=== PATIENT | female | born 1970 | race Two or more races ===

== ENCOUNTER → 2016-08-16 | Day surgery (SDC) | payer OTHER ==
[~2016-08-16] MED LIST: ASPIRIN81 MG PO; FERRO-TIME325 MG PO; GLUCOPHAGE500 MG PO; HYDROXYZINE HCL25 M1 PO; LISINOPRIL2.5 MG PO; MOBIC PO; NAPROXEN500 M1 PO; OMEPRAZOLE20 M2 PO; PRAVASTATIN SOD20 MG PO; ZOFRAN ODT4 MG PO
--- NOTE | ~2016-08-16 | EKG ---
PATIENT: VERNELL TAVAREZ UNIT #: [id number] Ventricular Rate: 66 BPM Atrial Rate: 66 BPM P-R Interval: 174 ms QRS Duration: 76 ms Q-T Interval: 424 ms QTC Calculation(Bezet): 444 ms P [employer]: 38 degrees Calculated R [employer]: 40 degrees Calculated T [employer]: 35 degrees Diagnosis Line: Normal sinus rhythm Diagnosis Line: Normal ECG Diagnosis Line: No previous ECGs available Diagnosis Line: Confirmed by NHAN JUAN MD ([id number]) on Diagnosis Line: 08/16/2016 5:28:52 PM INTERPRETING MD: DRAKE TIRADO
--- NOTE | ~2016-08-16 | OR ---
Unit #: [id number] #: [id number] Patient: VERNELL TAVAREZ [id number] [address] [address] [id number] MR#: [id number] NAME: VERNELL TAVAREZ ROOM: Date of Procedure: 08/16/2016 Admission Date: 08/16/2016 Surgeon: Hawk rPo M.D. : 1970 Attending Physician: Hawk Pro M.D. Primary Care Physician: Generic Doctor Not In System OPERATIVE REPORT PROCEDURE PERFORMED Esophagogastroduodenoscopy with biopsy. INDICATIONS FOR PROCEDURE A 46-year-old female with epigastric pain and history of H pylori, status post antibiotics. MEDICATIONS Monitored anesthesia. POSTOPERATIVE FINDINGS 1. Normal esophagus. 2. Mild gastritis, biopsies taken. 3. Normal duodenum and distal duodenum. PLAN 1. Continue PPI therapy. 2. Avoid NSAIDs. 3. Treat for H pylori if positive. DESCRIPTION OF PROCEDURE The patient was explained of the procedure, risks, and benefits along with risks and benefits of anesthesia. She was brought to the endoscopy room. Propofol anesthesia was given. Bite block was placed. The scope was passed down the mouth into the esophagus, stomach, duodenum, and distal duodenum. Findings as described. Biopsies taken. Gently, I pulled it of the patient's mouth. She tolerated it well. Dictated by... Crystal Guzman/usha TD: 08/17/2016 01:49 JOB #: [id number] Unit #: [id number] #: [id number] Patient: VERNELL TAVAREZ OPERATIVE REPORT Page 1 of 1 X Hawk Pro MD X PROCEDURE OPERATIVE NOTE
[2016-08-16 15:39] LABS: BASOPHIL# 0.3 X10e3 (0-0.3); BASOPHIL% 2.4 % (0-2.5); EOSINOPHIL# 0.1 X10e3 (0-0.7); EOSINOPHIL% 0.9 % (0.0-7.0); HEMATOCRIT 37.2 % (35.0-45.0); HEMOGLOBIN 12.3 gm/dL (12.0-16.0); LYMPHOCYTE# 3.5 X10e3 (1.0-3.5); LYMPHOCYTE% 32.9 % (17.0-45.0); MEAN CELL VOLUME 88.9 FL (83-96); MEAN CORPUSCULAR HEMOGLOBIN 29.4 PG (28-34); MEAN CORPUSCULAR HGB CONC 33.1 g/dL (30-36); MEAN PLATELET VOLUME 7.8 FL (6.5-11.5); MONOCYTE# 0.5 X10e3 (0-1.0); MONOCYTE% 5.1 % (3.0-12.0); NEUTROPHIL# 6.3 X10e3 (1.5-7.1); NEUTROPHIL% 58.7 % (40-75); PLATELET COUNT 443 X10e3 (140-420); RED BLOOD COUNT 4.19 X10e (3.90-5.30); RED CELL DISTRIBUTION WIDTH 13.3 % (11.0-15.5); WHITE BLOOD COUNT 10.7 X10e3 (4.0-10.5)
[2016-08-16 15:47] LABS: DIFF IND NO
[2016-08-16 16:04] LABS: ALBUMIN SERUM 4.4 g/dL (3.5-5.0); BUN/CREATININE RATIO 33.33; CALCIUM SERUM 9.2 mg/dL (8.4-10.2); CREATININE SERUM 0.3 mg/dL (0.6-1.4); GLOM FILT RATE Estimated 139.3 mL/min (>60); POTASSIUM 3.4 mmol/L (3.5-5.1); PROTEIN TOTAL SERUM 7.9 g/dL (6.0-8.3)
== END | disposition home or self-care (01) ==
LOC: COPS 08:00
PROVIDERS: Internal Medicine
DX: K29.50 Unspecified chronic gastritis without bleeding (principal); E11.9 Type 2 diabetes mellitus without complications; K21.9 Gastro-esophageal reflux disease without esophagitis; D64.9 Anemia, unspecified; E78.5 Hyperlipidemia, unspecified; Z87.891 Personal history of nicotine dependence; Z86.19 Personal history of other infectious and parasitic diseases; Z79.82 Long term (current) use of aspirin; Z79.84 Long term (current) use of oral hypoglycemic drugs; Z79.1 Long term (current) use of non-steroidal anti-inflammatories (NSAID); Z79.899 Other long term (current) drug therapy
CPT/HCPCS: 80053; 82947; 84703; 85025; 88305; 88312; 93005